=== PATIENT | male | born 1955 | race Caucasian/White ===

== ENCOUNTER 2018-11-23 14:27 | Outpatient (CLI) | payer MEDICAID | END 2018-11-23 23:59 | disposition home or self-care (01) | LOC: CARD DIAG 14:27 | PROVIDERS: ATTEND Physician Assistant | DX: I08.8 Other rheumatic multiple valve diseases (principal); I10 Essential (primary) hypertension | CPT/HCPCS: 93306 ==

== ENCOUNTER 2021-10-19 11:11 | Day surgery (SDC) | payer MEDICAID ==
[2021-10-15 12:08] LABS: BASOPHILS # (AUTO) 0.1 X10'3 (0-0.2); BASOPHILS % (AUTO) 0.9 % (0-1); EOSINOPHILS # (AUTO) 0.1 X10'3 (0-0.9); EOSINOPHILS % (AUTO) 1.3 % (0-6); HEMATOCRIT 48.3 % (42.0-52.0); HEMOGLOBIN 16.5 g/dl (14.0-17.9); LYMPHOCYTES # (AUTO) 1.5 X10'3 (1.1-4.8); LYMPHOCYTES % (AUTO) 17.6 % (21-51); MEAN CORPUSCULAR HEMOGLOBIN 31.3 PG (27.0-31.0); MEAN CORPUSCULAR HGB CONC 34.1 g/dL (33.0-36.5); MEAN CORPUSCULAR VOLUME 91.7 FL (78-98); MEAN PLATELET VOLUME 7.9 FL (7.4-10.4); MONOCYTES # (AUTO) 0.8 X10'3 (0-0.9); MONOCYTES % (AUTO) 9.5 % (2-12); NEUTROPHILS % (AUTO) 70.7 % (42-75); PLATELET COUNT 234 X10'3 (140-440); RED BLOOD COUNT 5.27 X10'6 (4.70-6.10); RED CELL DISTRIBUTION WIDTH 15.8 % (11.5-14.5); WHITE BLOOD COUNT 8.4 X10'3 (4.5-11.0)
[2021-10-15 12:17] LABS: APTT 32 SECONDS (22-32)
[2021-10-15 12:21] LABS: ALANINE AMINOTRANSFERASE 31 U/L (12-78); ALBUMIN 3.9 G/DL (3.4-5.0); ALBUMIN/GLOBULIN RATIO 0.9 (1.1-1.5); ANION GAP 10 (8-16); ASPARTATE AMINO TRANSFERASE 52 U/L (10-37); BLOOD UREA NITROGEN 15 MG/DL (7-18); BUN/CREATININE RATIO 13.5 (5.4-32.0); CHLORIDE 103 MMOL/L (99-107); CREATININE 1.11 MG/DL (0.60-1.10); GLUCOSE 95 MG/DL (70-104); POTASSIUM 3.7 MMOL/L (3.5-5.1); SODIUM 140 MMOL/L (135-145); TOTAL CARBON DIOXIDE 26.7 MMOL/L (24-32); TOTAL PROTEIN 8.1 G/DL (6.4-8.2); eGFR 66 ML/MIN
[2021-10-15 12:22] LABS: ALKALINE PHOSPHATASE 97 IU/L (46-116); CHOL/HDL RATIO 3.5 (0.00-4.99); CHOLESTEROL 273 MG/DL (0-200); HDL CHOLESTEROL 79 MG/DL (35-60); LDL CHOLESTEROL 174 MG/DL (50-100); TRIGLYCERIDES 107 MG/DL (20-135)
[~2021-10-19] VITALS: Ht 165.1 cm; Wt 102.0 kg
[2021-10-19] VITALS (12 sets, daily range): BP systolic 129–170; BP diastolic 80–155
[2021-10-19] MEDS ORDERED: LISI30TA4 PO (11:33)
[2021-10-19] MEDS ORDERED: AMIO200T61 PO (11:33)
[2021-10-19] MEDS ORDERED: ATOR20TA66 PO (11:33)
[2021-10-19] MEDS ORDERED: METO200T49 PO (11:33)
[2021-10-19] MEDS ORDERED: APIX5TAB3 PO (11:33)
[2021-10-19] MEDS ORDERED: normal saline 1000ml 1,000 ML IV SCH (12:40)
[2021-10-19] MEDS ORDERED: fentaNYL/PF 50MCG/1 ML 2ML syringe IV ONE (12:40)
[2021-10-19] MEDS ORDERED: MIDAZolam 1mg/ml 10ml vial IV ONE (12:40)
--- NOTE | 2021-10-19 13:17 | NUR ---
RT for standby for cardioversion, SUNDAY indicated pt placed on 5lpm NC pre procedure titrate to 2lpm NC post procedure, BS clear t/out, PT awake alert responding appropriately, RN to resume management of pt. Addendum: 10/19/21 at 1319 by Betzy Dixon RT Amended: Links added.
== END 2021-10-19 14:30 | disposition home or self-care (01) ==
LOC: SSTAY O 11:11
PROVIDERS: ATTEND Internal Medicine Interventional Cardiology
DX: I48.0 Paroxysmal atrial fibrillation (principal); I11.0 Hypertensive heart disease with heart failure; I50.22 Chronic systolic (congestive) heart failure; I35.0 Nonrheumatic aortic (valve) stenosis; Z86.73 Personal history of transient ischemic attack (TIA), and cerebral infarction without residual deficits; Z79.01 Long term (current) use of anticoagulants; Z79.899 Other long term (current) drug therapy
CPT/HCPCS: 36415; 80053; 80061; 85025; 85610; 85730; 92960; 93005; 94760; 94799; J2250; J3010; J7030; A4620

== ENCOUNTER 2022-05-15 13:15 | Emergency (ER) | payer MEDICARE, MEDICAID ==
[~2022-05-15] VITALS: Ht 162.6 cm; Wt 115.0 kg
[~2022-05-15 13:15] MED LIST: AMIO200T61 PO; APIX5TAB3 PO; ATOR20TA66 PO; LISI30TA4 PO; METO200T49 PO
[2022-05-15] MEDS ORDERED: morphine 4 MG/ML inj SYRINge IV ONE (13:45)
[2022-05-15] MEDS ORDERED: metoprolol tartrate 1mg/ml inj IV ONE (13:45)
[2022-05-15] MEDS ORDERED: pantoprazole 40 MG vial IV ONE (13:45)
[2022-05-15] MEDS ORDERED: LORazepam 2 mg/ml vial IV ONE (13:45)
[2022-05-15] MEDS ORDERED: pantoprazole 40MG/NS 100ML BAG 100 ML IV ONE (14:00)
[2022-05-15 14:09] LABS: CLARITY,URINE CLEAR (Clear); COLOR,URINE STRAW (Yellow); GLUCOSE, URINE NEGATIVE (Neg); KETONES,URINE NEGATIVE (Neg); LEUKOCYTE ESTERASE ,URINE NEGATIVE (Neg); NITRITES, URINE NEGATIVE (Neg); OCCULT BLOOD,URINE NEGATIVE (Neg); PROTEIN,URINE NEGATIVE (Neg); UROBILINOGEN,URINE 0.2 E.U/dL (0.2-1.0)
[2022-05-15 14:09] LABS: BASOPHILS # (AUTO) 0.1 X10'3 (0-0.2); BASOPHILS % (AUTO) 1.2 % (0-1); EOSINOPHILS # (AUTO) 0.1 X10'3 (0-0.9); EOSINOPHILS % (AUTO) 0.6 % (0-6); HEMATOCRIT 42.1 % (42.0-52.0); HEMOGLOBIN 14.6 g/dl (14.0-17.9); LYMPHOCYTES # (AUTO) 1.2 X10'3 (1.1-4.8); LYMPHOCYTES % (AUTO) 14.2 % (21-51); MEAN CORPUSCULAR HEMOGLOBIN 34.8 PG (27.0-31.0); MEAN CORPUSCULAR HGB CONC 34.7 g/dL (33.0-36.5); MEAN CORPUSCULAR VOLUME 100.3 FL (78-98); MONOCYTES # (AUTO) 0.6 X10'3 (0-0.9); MONOCYTES % (AUTO) 7.8 % (2-12); NEUTROPHILS # (AUTO) 6.3 X10'3 (1.8-7.7); NEUTROPHILS % (AUTO) 76.2 % (42-75); PLATELET COUNT 275 X10'3 (140-440); RED CELL DISTRIBUTION WIDTH 13.9 % (11.5-14.5); WHITE BLOOD COUNT 8.3 X10'3 (4.5-11.0)
[2022-05-15 14:14] LABS: UA COLLECTION TYPE VOIDED
[2022-05-15 14:28] LABS: ALANINE AMINOTRANSFERASE 67 U/L (12-78); ALBUMIN 3.7 G/DL (3.4-5.0); ALBUMIN/GLOBULIN RATIO 0.8 (1.1-1.5); ALKALINE PHOSPHATASE 91 IU/L (46-116); ANION GAP 11 (8-16); ASPARTATE AMINO TRANSFERASE 70 U/L (10-37); BILIRUBIN,TOTAL 0.6 MG/DL (0.1-1.0); BLOOD UREA NITROGEN 22 MG/DL (7-18); BUN/CREATININE RATIO 14.8 (5.4-32.0); CHLORIDE 103 MMOL/L (99-107); CREATININE 1.49 MG/DL (0.60-1.10); ETHANOL < 0.010 GM/DL (0.0-0.010); GLUCOSE 109 MG/DL (70-104); LIPASE 224 U/L (73-393); POTASSIUM 3.7 MMOL/L (3.5-5.1); SODIUM 138 MMOL/L (135-145); TOTAL CARBON DIOXIDE 24.1 MMOL/L (24-32); TOTAL PROTEIN 8.1 G/DL (6.4-8.2); eGFR 47 ML/MIN
[2022-05-15] MEDS ORDERED: FURO-149 PO (14:31)
[2022-05-15] MEDS ORDERED: HYDROcodone/acetaminophen 10/325mg tab PO ONE (15:40)
[2022-05-15] MEDS ORDERED: HYDR-3972 PO (15:43)
[2022-05-15 15:59] VITALS: BP 139/95
== END 2022-05-15 16:08 | disposition home or self-care (01) ==
LOC: ER 13:15
DX: I48.91 Unspecified atrial fibrillation (principal); R10.9 Unspecified abdominal pain; I10 Essential (primary) hypertension; Z79.899 Other long term (current) drug therapy; Z79.1 Long term (current) use of non-steroidal anti-inflammatories (NSAID)
CPT/HCPCS: 36415; 71045; 74176; 80053; 80320; 81003; 83690; 85025; 93005; 96365; 96375; 99285; C9113; J3490

== ENCOUNTER 2022-06-18 21:23 | Emergency (ER) | payer MEDICARE, MEDICAID ==
[~2022-06-18] VITALS: Ht 167.6 cm; Wt 104.5 kg
[~2022-06-18 21:23] MED LIST changes: +FURO-149 PO; -METO200T49 PO
[2022-06-18] MEDS ORDERED: diltiazem 30mg tablet PO ONE (22:40)
[2022-06-19 02:04] VITALS: BP 89/46
[2022-06-19] MEDS ORDERED: HYDR-3965 PO (14:50)
== END 2022-06-19 03:56 | disposition home or self-care (01) ==
LOC: ER 21:23
DX: F10.920 Alcohol use, unspecified with intoxication, uncomplicated (principal); I11.9 Hypertensive heart disease without heart failure; Z79.899 Other long term (current) drug therapy; Y90.9 Presence of alcohol in blood, level not specified; S09.90XA Unspecified injury of head, initial encounter
CPT/HCPCS: 70450; 99285

== ENCOUNTER 2022-06-19 13:37 | Emergency (ER) | payer MEDICARE, MEDICAID ==
[~2022-06-19] VITALS: Ht 167.6 cm; Wt 104.5 kg
[2022-06-19 14:03] VITALS: BP 122/69
[2022-06-19] MEDS ORDERED: HYDR-3965 PO (14:50)
== END 2022-06-19 15:22 | disposition home or self-care (01) ==
LOC: ER 13:37
DX: R07.81 Pleurodynia (principal); F10.920 Alcohol use, unspecified with intoxication, uncomplicated; I11.9 Hypertensive heart disease without heart failure; Z79.899 Other long term (current) drug therapy; Z79.1 Long term (current) use of non-steroidal anti-inflammatories (NSAID); Z79.2 Long term (current) use of antibiotics; W19.XXXA Unspecified fall, initial encounter; Y93.89 Activity, other specified; Y92.89 Other specified places as the place of occurrence of the external cause; Y99.8 Other external cause status
CPT/HCPCS: 71100; 99284

== ENCOUNTER 2022-10-25 20:47 | Emergency (ER) | payer OTHER, MEDICAID ==
[~2022-10-25] VITALS: Ht 167.6 cm; Wt 100.0 kg
[~2022-10-25 20:47] MED LIST changes: +AMI200T PO; -AMIO200T61 PO
[2022-10-25 21:16] VITALS: BP 94/64
[2022-10-25 21:33] LABS: ALANINE AMINOTRANSFERASE 68 U/L (12-78); ALBUMIN 3.6 G/DL (3.4-5.0); ALBUMIN/GLOBULIN RATIO 0.9 (1.1-1.5); ALKALINE PHOSPHATASE 118 IU/L (46-116); ANION GAP 13 (8-16); ASPARTATE AMINO TRANSFERASE 108 U/L (10-37); BILIRUBIN,TOTAL 0.7 MG/DL (0.1-1.0); BLOOD UREA NITROGEN 24 MG/DL (7-18); BUN/CREATININE RATIO 11.2 (10.0-20.0); CALCIUM 8.7 MG/DL (8.5-10.1); CHLORIDE 103 MMOL/L (99-107); CREATININE 2.14 MG/DL (0.60-1.10); GLUCOSE 99 MG/DL (70-104); POTASSIUM 3.9 MMOL/L (3.5-5.1); SODIUM 139 MMOL/L (135-145); TOTAL CARBON DIOXIDE 22.9 MMOL/L (24-32); TOTAL PROTEIN 7.7 G/DL (6.4-8.2); eGFR 31 ML/MIN
[2022-10-25 21:50] LABS: BASOPHILS # (AUTO) 0.1 X10'3 (0-0.2); BASOPHILS % (AUTO) 1.5 % (0-1); EOSINOPHILS # (AUTO) 0.1 X10'3 (0-0.9); EOSINOPHILS % (AUTO) 1.7 % (0-6); HEMATOCRIT 40.4 % (42.0-52.0); HEMOGLOBIN 13.7 g/dl (14.0-17.9); LYMPHOCYTES # (AUTO) 1.9 X10'3 (1.1-4.8); LYMPHOCYTES % (AUTO) 29.7 % (21-51); MEAN CORPUSCULAR HEMOGLOBIN 34.2 PG (27.0-31.0); MEAN CORPUSCULAR VOLUME 100.8 FL (78-98); MONOCYTES # (AUTO) 0.7 X10'3 (0-0.9); MONOCYTES % (AUTO) 11.4 % (2-12); NEUTROPHILS # (AUTO) 3.6 X10'3 (1.8-7.7); NEUTROPHILS % (AUTO) 55.7 % (42-75); PLATELET COUNT 173 X10'3 (140-440); RED BLOOD COUNT 4.01 X10'6 (4.70-6.10); RED CELL DISTRIBUTION WIDTH 15.4 % (11.5-14.5); WHITE BLOOD COUNT 6.4 X10'3 (4.5-11.0)
[2022-10-25] MEDS ORDERED: normal saline 1000ML IV soln IVB ONE (22:15)
== END 2022-10-25 23:34 | disposition home or self-care (01) ==
LOC: ER 20:47
DX: I48.91 Unspecified atrial fibrillation (principal); F10.129 Alcohol abuse with intoxication, unspecified; I10 Essential (primary) hypertension; Y90.9 Presence of alcohol in blood, level not specified
CPT/HCPCS: 36415; 71045; 80053; 83880; 84484; 85025; 93005; 99285; J7030; J7040

== ENCOUNTER 2023-12-04 21:40 | Inpatient (IN) | payer MEDICAID, OTHER ==
[~2023-12-04] VITALS: Ht 167.6 cm; Wt 108.6 kg
[2023-12-04 22:19] LABS: ALANINE AMINOTRANSFERASE 51 U/L (12-78); ALBUMIN 3.1 G/DL (3.4-5.0); ALBUMIN/GLOBULIN RATIO 0.7 (1.1-1.5); ALKALINE PHOSPHATASE 94 IU/L (46-116); ANION GAP 11 (8-16); ASPARTATE AMINO TRANSFERASE 37 U/L (10-37); BILIRUBIN,TOTAL 0.9 MG/DL (0.1-1.0); BLOOD UREA NITROGEN 10 MG/DL (7-18); BUN/CREATININE RATIO 8.1 (10.0-20.0); CALCIUM 8.6 MG/DL (8.5-10.1); CHLORIDE 107 MMOL/L (99-107); CREATININE 1.24 MG/DL (0.60-1.10); GLUCOSE 102 MG/DL (70-104); POTASSIUM 3.6 MMOL/L (3.5-5.1); SODIUM 139 MMOL/L (135-145); TOTAL CARBON DIOXIDE 20.9 MMOL/L (24-32); TOTAL PROTEIN 7.3 G/DL (6.4-8.2); eCRCL 52 ML/MIN; eGFR 58 ML/MIN
[2023-12-04 22:23] LABS: ETHANOL 17 MG/DL (<10)
[2023-12-04 22:35] LABS: BASOPHILS # (AUTO) 0.1 X10'3 (0-0.2); BASOPHILS % (AUTO) 0.8 % (0-1); EOSINOPHILS # (AUTO) 0.1 X10'3 (0-0.9); EOSINOPHILS % (AUTO) 0.9 % (0-6); HEMATOCRIT 42.3 % (42.0-52.0); HEMOGLOBIN 14.4 g/dl (14.0-17.9); LYMPHOCYTES # (AUTO) 1.7 X10'3 (1.1-4.8); LYMPHOCYTES % (AUTO) 15.7 % (21-51); MEAN CORPUSCULAR HEMOGLOBIN 33.5 PG (27.0-31.0); MEAN CORPUSCULAR VOLUME 98.6 FL (78-98); MEAN PLATELET VOLUME 7.8 FL (7.4-10.4); MONOCYTES # (AUTO) 0.9 X10'3 (0-0.9); MONOCYTES % (AUTO) 8.3 % (2-12); NEUTROPHILS # (AUTO) 7.8 X10'3 (1.8-7.7); NEUTROPHILS % (AUTO) 74.3 % (42-75); PLATELET COUNT 247 X10'3 (140-440); RED BLOOD COUNT 4.29 X10'6 (4.70-6.10); RED CELL DISTRIBUTION WIDTH 15.3 % (11.5-14.5); WHITE BLOOD COUNT 10.6 X10'3 (4.5-11.0)
[2023-12-04 22:52] LABS: APTT 23 SECONDS (22-32); PROTHROMBIN TIME 10.8 SECONDS (9.0-12.0)
[2023-12-04] MEDS: diltiazem 5mg/ml 5ml inj. IV ONE (23:03)
[2023-12-05 00:12] LABS: URINE AMPHETAMINE SCREEN NEGATIVE (Neg); URINE BARBITUATE SCREEN NEGATIVE (Neg); URINE BENZODIAZEPINES SCREEN NEGATIVE (Neg); URINE CANNABINOID SCREEN NEGATIVE (Neg); URINE COCAINE SCREEN NEGATIVE (Neg); URINE METHADONE SCREEN NEGATIVE (Neg); URINE OPIATE SCREEN NEGATIVE (Neg); URINE PHENCYCLIDINE SCREEN NEGATIVE (Neg)
[2023-12-05] MEDS: diltiazem-NS 100mg/100ml 100 ML IV SCH (00:21)
[2023-12-05] MEDS: furosemide 40mg/4ml inj IV ONE (00:21)
[2023-12-05 01:49] LABS: BILIRUBIN,URINE NEGATIVE (Neg); CLARITY,URINE CLEAR (Clear); COLOR,URINE YELLOW (Yellow); GLUCOSE, URINE NEGATIVE (Neg); KETONES,URINE NEGATIVE (Neg); LEUKOCYTE ESTERASE ,URINE NEGATIVE (Neg); NITRITES, URINE NEGATIVE (Neg); OCCULT BLOOD,URINE NEGATIVE (Neg); PROTEIN,URINE NEGATIVE (Neg)
[2023-12-05 02:00] VITALS: BP 144/76; PULSE 120; RESP 20; TEMP 98; O2SAT 96
[2023-12-05] MEDS ORDERED: clopidogrel 75mg tablet PO SCH (02:05)
[2023-12-05 02:16] LABS: UA COLLECTION TYPE CLN CATCH MIDSTREAM
[2023-12-05] MEDS ORDERED: clopidogrel 300mg tablet PO ONE (03:55)
[2023-12-05] MEDS: furosemide 20 MG/2 ML vial IV ONE (04:04)
[2023-12-05] MEDS: aspirin 325mg tablet PO ONE (04:04)
[2023-12-05] MEDS: clopidogrel 75mg tablet PO ONE (04:05)
[2023-12-05] MEDS: diltiazem 30mg tablet PO SCH (04:05)
[2023-12-05 06:54] LABS: THYROID STIMULATING HORMONE 10.33 ulU/ml (0.34-4.50)
[2023-12-05 08:00] VITALS: BP 132/89; PULSE 77; RESP 16; TEMP 97.4; O2SAT 97
[2023-12-05] MEDS ORDERED: atorvastatin 20mg tablet PO SCH (08:00)
[2023-12-05] MEDS: lisinopril 10 MG tablet PO SCH (08:00)
[2023-12-05] MEDS ORDERED: apixaban 5mg tablet PO SCH (08:00)
[2023-12-05] MEDS: furosemide 40mg/4ml inj IV SCH (08:58)
[2023-12-05] MEDS: aspirin 81mg, enteric-coated 1 TAB TABLET.DR PO SCH (08:59)
[2023-12-05 10:15] LABS: BASOPHILS # (AUTO) 0.1 X10'3 (0-0.2); EOSINOPHILS # (AUTO) 0.1 X10'3 (0-0.9); EOSINOPHILS % (AUTO) 1.3 % (0-6); HEMOGLOBIN 14.9 g/dl (14.0-17.9); LYMPHOCYTES # (AUTO) 1.6 X10'3 (1.1-4.8); LYMPHOCYTES % (AUTO) 14.9 % (21-51); MEAN CORPUSCULAR HEMOGLOBIN 33.7 PG (27.0-31.0); MEAN CORPUSCULAR HGB CONC 33.9 g/dL (33.0-36.5); MEAN CORPUSCULAR VOLUME 99.4 FL (78-98); MEAN PLATELET VOLUME 8.7 FL (7.4-10.4); MONOCYTES % (AUTO) 9.2 % (2-12); NEUTROPHILS # (AUTO) 7.6 X10'3 (1.8-7.7); NEUTROPHILS % (AUTO) 73.6 % (42-75); PLATELET COUNT 258 X10'3 (140-440); RED BLOOD COUNT 4.43 X10'6 (4.70-6.10); RED CELL DISTRIBUTION WIDTH 15.4 % (11.5-14.5); WHITE BLOOD COUNT 10.4 X10'3 (4.5-11.0)
[2023-12-05 10:20] LABS: ALANINE AMINOTRANSFERASE 48 U/L (12-78); ALBUMIN 3.4 G/DL (3.4-5.0); ALBUMIN/GLOBULIN RATIO 0.8 (1.1-1.5); ALKALINE PHOSPHATASE 98 IU/L (46-116); ANION GAP 18 (8-16); ASPARTATE AMINO TRANSFERASE 38 U/L (10-37); BILIRUBIN,TOTAL 1.5 MG/DL (0.1-1.0); BLOOD UREA NITROGEN 10 MG/DL (7-18); BUN/CREATININE RATIO 7.6 (10.0-20.0); CALCIUM 8.8 MG/DL (8.5-10.1); CHLORIDE 103 MMOL/L (99-107); CREATININE 1.31 MG/DL (0.60-1.10); GLUCOSE 109 MG/DL (70-104); POTASSIUM 3.5 MMOL/L (3.5-5.1); SODIUM 140 MMOL/L (135-145); TOTAL CARBON DIOXIDE 18.9 MMOL/L (24-32); TOTAL PROTEIN 7.9 G/DL (6.4-8.2); eCRCL 49 ML/MIN; eGFR 55 ML/MIN
[2023-12-05 18:00] VITALS: BP 143/68; PULSE 106; RESP 26; TEMP 97.2; O2SAT 96
[2023-12-05 22:00] VITALS: BP 123/78; PULSE 115; RESP 20; TEMP 98.9; O2SAT 96
[2023-12-06] VITALS (7 sets, daily range): BP systolic 103–129; BP diastolic 76–87; PULSE 58–114; RESP 14–25; TEMP 97.2–99; O2SAT 93–96
[2023-12-06 06:53] LABS: CHOL/HDL RATIO 6.3 (0.00-4.99); CHOLESTEROL 282 MG/DL (0-200); HDL CHOLESTEROL 45 MG/DL (35-60); LDL CHOLESTEROL 199 MG/DL (50-100); TRIGLYCERIDES 102 MG/DL (20-135)
[2023-12-06] MEDS: atorvastatin 20mg tablet PO SCH (07:22)
[2023-12-06] MEDS: levoTHYROXINE 25mcg tablet PO SCH (07:23)
[2023-12-06] MEDS: diltiazem CD 120mg capsule (once-daily) PO SCH (07:24)
[2023-12-06] MEDS ORDERED: APIX5TAB3 PO (10:32)
[2023-12-06] MEDS ORDERED: clopidogrel 75mg tablet PO SCH (12:00)
[2023-12-06] MEDS: apixaban 5mg tablet PO SCH (20:09)
[2023-12-07] VITALS (10 sets, daily range): BP systolic 98–132; BP diastolic 63–91; PULSE 87–110; RESP 14–25; TEMP 97–98.3; O2SAT 93–100
[2023-12-07] MEDS: clopidogrel 75mg tablet PO SCH (07:18)
[2023-12-07] MEDS: lisinopril 5mg tablet PO SCH (07:18)
[2023-12-07] MEDS: metoprolol succinate 25mg (24-HOUR) SR. Tablet PO SCH (07:19)
[2023-12-07] MEDS: furosemide 40mg tablet PO SCH (07:19)
[2023-12-07] MEDS: diltiazem CD 180mg cap (once-daily) PO SCH (07:19)
[2023-12-07 09:14] LABS: ALBUMIN 3.3 G/DL (3.4-5.0); ANION GAP 11 (8-16); BLOOD UREA NITROGEN 16 MG/DL (7-18); BUN/CREATININE RATIO 12.3 (10.0-20.0); CALCIUM 9.4 MG/DL (8.5-10.1); CHLORIDE 100 MMOL/L (99-107); GLUCOSE 110 MG/DL (70-104); POTASSIUM 3.5 MMOL/L (3.5-5.1); SODIUM 135 MMOL/L (135-145); TOTAL CARBON DIOXIDE 24.2 MMOL/L (24-32); eCRCL 50 ML/MIN; eGFR 55 ML/MIN
[2023-12-08] VITALS (8 sets, daily range): BP systolic 105–128; BP diastolic 68–83; PULSE 66–108; RESP 16–24; TEMP 97–97.9; O2SAT 94–100
[2023-12-08] MEDS: metoprolol succinate 25mg (24-HOUR) SR. Tablet PO SCH (08:59)
[2023-12-08] MEDS: amox tr/potassium clavulanate 875/125mg TAB PO SCH (11:38)
[2023-12-08] MEDS: predniSONE 20 mg tablet PO SCH (11:38)
[2023-12-09 02:00] VITALS: BP 117/78; PULSE 88; RESP 19; TEMP 97; O2SAT 96
[2023-12-09] MEDS ORDERED: haloperidol lactate 5mg/ml inj IM PRN (02:15)
[2023-12-09] MEDS ORDERED: LORazepam 2 mg/ml vial IV PRN ×3 (02:15)
[2023-12-09] MEDS ORDERED: dextrose 50%-water 50ml dispensing syringe IV PRN (02:15)
[2023-12-09] MEDS ORDERED: LORazepam 1 MG tablet PO PRN ×2 (02:15)
[2023-12-09] MEDS ORDERED: haloperidol 5mg tablet PO PRN (02:15)
[2023-12-09 06:00] VITALS: BP 102/75; PULSE 70; RESP 18; TEMP 97; O2SAT 96
[2023-12-09] MEDS: folic acid 1mg/0.2ml inj IV SCH (08:00)
[2023-12-09] MEDS: thiamine 100mg/ml 2ml inj. IV SCH (08:00)
[2023-12-09] MEDS: folic acid 1mg tablet PO SCH (08:33)
[2023-12-09] MEDS: thiamine 100mg tablet PO SCH (08:33)
[2023-12-09 08:59] LABS: BASOPHILS # (AUTO) 0.1 X10'3 (0-0.2); BASOPHILS % (AUTO) 0.3 % (0-1); EOSINOPHILS % (AUTO) 0.2 % (0-6); HEMATOCRIT 49.1 % (42.0-52.0); HEMOGLOBIN 16.6 g/dl (14.0-17.9); LYMPHOCYTES # (AUTO) 1.8 X10'3 (1.1-4.8); LYMPHOCYTES % (AUTO) 9.7 % (21-51); MEAN CORPUSCULAR HEMOGLOBIN 33.5 PG (27.0-31.0); MEAN CORPUSCULAR HGB CONC 33.8 g/dL (33.0-36.5); MEAN CORPUSCULAR VOLUME 99.4 FL (78-98); MEAN PLATELET VOLUME 8.2 FL (7.4-10.4); MONOCYTES # (AUTO) 1.3 X10'3 (0-0.9); MONOCYTES % (AUTO) 7.2 % (2-12); NEUTROPHILS # (AUTO) 15.1 X10'3 (1.8-7.7); NEUTROPHILS % (AUTO) 82.6 % (42-75); PLATELET COUNT 306 X10'3 (140-440); RED BLOOD COUNT 4.95 X10'6 (4.70-6.10); RED CELL DISTRIBUTION WIDTH 15.1 % (11.5-14.5); WHITE BLOOD COUNT 18.3 X10'3 (4.5-11.0)
[2023-12-09 09:09] LABS: ALBUMIN 3.4 G/DL (3.4-5.0); ANION GAP 11 (8-16); BLOOD UREA NITROGEN 29 MG/DL (7-18); BUN/CREATININE RATIO 19.3 (10.0-20.0); CALCIUM 10.1 MG/DL (8.5-10.1); CHLORIDE 100 MMOL/L (99-107); GLUCOSE 98 MG/DL (70-104); POTASSIUM 3.7 MMOL/L (3.5-5.1); SODIUM 139 MMOL/L (135-145); TOTAL CARBON DIOXIDE 28.5 MMOL/L (24-32); eCRCL 43 ML/MIN; eGFR 47 ML/MIN
[2023-12-09 11:00] VITALS: BP 107/74; PULSE 96; RESP 14; TEMP 97.9; O2SAT 98
[2023-12-09] MEDS: prednisone 10mg tablet PO ONE (12:10)
[2023-12-09 18:00] VITALS: BP 110/64; PULSE 96; RESP 22; TEMP 97.8; O2SAT 98
[2023-12-09 22:00] VITALS: BP 117/64; PULSE 66; RESP 12; TEMP 97.8; O2SAT 98
[2023-12-10 06:00] VITALS: BP 136/88; PULSE 55; RESP 17; TEMP 97.1; O2SAT 96
[2023-12-10 08:00] VITALS: RESP 19; O2SAT 96
[2023-12-10 08:59] LABS: BASOPHILS % (AUTO) 0.1 % (0-1); EOSINOPHILS % (AUTO) 0 % (0-6); HEMATOCRIT 46.6 % (42.0-52.0); HEMOGLOBIN 15.3 g/dl (14.0-17.9); LYMPHOCYTES # (AUTO) 1.5 X10'3 (1.1-4.8); MEAN CORPUSCULAR HEMOGLOBIN 32.7 PG (27.0-31.0); MEAN CORPUSCULAR HGB CONC 32.8 g/dL (33.0-36.5); MEAN CORPUSCULAR VOLUME 99.8 FL (78-98); MEAN PLATELET VOLUME 8.9 FL (7.4-10.4); MONOCYTES % (AUTO) 5.3 % (2-12); NEUTROPHILS % (AUTO) 86.6 % (42-75); PLATELET COUNT 293 X10'3 (140-440); RED BLOOD COUNT 4.68 X10'6 (4.70-6.10); RED CELL DISTRIBUTION WIDTH 15.2 % (11.5-14.5); WHITE BLOOD COUNT 18.4 X10'3 (4.5-11.0)
[2023-12-10 09:03] LABS: ANION GAP 9 (8-16); BLOOD UREA NITROGEN 32 MG/DL (7-18); C-REACTIVE PROTEIN 2.99 MG/DL (0.0-0.5); CALCIUM 9.3 MG/DL (8.5-10.1); CHLORIDE 102 MMOL/L (99-107); CREATININE 1.39 MG/DL (0.60-1.10); GLUCOSE 117 MG/DL (70-104); SODIUM 138 MMOL/L (135-145); TOTAL CARBON DIOXIDE 26.9 MMOL/L (24-32); URIC ACID 9.7 MG/DL (3.5-7.2); eCRCL 47 ML/MIN; eGFR 51 ML/MIN
[2023-12-10 09:04] LABS: POTASSIUM 3.9 MMOL/L (3.5-5.1)
[2023-12-10 11:00] VITALS: BP 120/76; PULSE 84; RESP 22; TEMP 98.9; O2SAT 98
[2023-12-10] MEDS ORDERED: METO-395 PO (13:09)
[2023-12-10] MEDS ORDERED: AMOX-580 PO (13:09)
[2023-12-10] MEDS ORDERED: LEVO25TA7 PO (13:09)
[2023-12-10] MEDS ORDERED: ATOR20TA66 PO (13:09)
[2023-12-10] MEDS ORDERED: PRED20TA PO (13:09)
[2023-12-10] MEDS ORDERED: LISI5TAB22 PO (13:09)
[2023-12-10 15:00] VITALS: BP 91/52; PULSE 87; RESP 19; TEMP 97.5; O2SAT 99
[2023-12-10 18:00] VITALS: BP 91/51; PULSE 91; RESP 18; TEMP 98.2; O2SAT 98
[2023-12-10 20:00] VITALS: RESP 18; O2SAT 98
[2023-12-11 07:23] VITALS: BP 127/91; PULSE 102; RESP 21; TEMP 97.5; O2SAT 97
[2023-12-11 07:42] VITALS: BP_SYST 127; PULSE 102
[2023-12-11 08:00] VITALS: RESP 21; O2SAT 96
== END 2023-12-11 10:40 | disposition home or self-care (01) | DRG 64 ==
LOC: ER 21:41 → UNDOADMIN 12-05 00:52 → ED HOLD 12-05 00:52 → PCU 3S 12-05 01:43
PROVIDERS: ADMIT Internal Medicine Critical Care Medicine; ATTEND Internal Medicine
PROC: B3251ZZ Computerized Tomography (CT Scan) of Bilateral Common Carotid Arteries using Low Osmolar Contrast (ICD-10-PCS; principal; 2023-12-04)
PROC: B32G1ZZ Computerized Tomography (CT Scan) of Bilateral Vertebral Arteries using Low Osmolar Contrast (ICD-10-PCS; 2023-12-04)
PROC: B32R1ZZ Computerized Tomography (CT Scan) of Intracranial Arteries using Low Osmolar Contrast (ICD-10-PCS; 2023-12-04)
PROC: B3281ZZ Computerized Tomography (CT Scan) of Bilateral Internal Carotid Arteries using Low Osmolar Contrast (ICD-10-PCS; 2023-12-04)
DX: I63.9 Cerebral infarction, unspecified (principal); I50.43 Acute on chronic combined systolic (congestive) and diastolic (congestive) heart failure; N17.0 Acute kidney failure with tubular necrosis; G81.91 Hemiplegia, unspecified affecting right dominant side; K92.0 Hematemesis; I11.0 Hypertensive heart disease with heart failure; I48.91 Unspecified atrial fibrillation; I27.20 Pulmonary hypertension, unspecified; E78.5 Hyperlipidemia, unspecified; F17.200 Nicotine dependence, unspecified, uncomplicated; I65.23 Occlusion and stenosis of bilateral carotid arteries; F10.929 Alcohol use, unspecified with intoxication, unspecified; Y90.9 Presence of alcohol in blood, level not specified; M10.9 Gout, unspecified; I70.1 Atherosclerosis of renal artery; L03.031 Cellulitis of right toe; I08.1 Rheumatic disorders of both mitral and tricuspid valves; Z91.148 Patient's other noncompliance with medication regimen for other reason; Z79.01 Long term (current) use of anticoagulants; Z91.199 Patient's noncompliance with other medical treatment and regimen due to unspecified reason
CPT/HCPCS: 36415; 70450; 70496; 70498; 70551; 71045; 80048; 80053; 80061; 80305; 80320; 81003; 82948; 83036; 83605; 83880; 84443; 84484; 84550; 85025; 85610; 85651; 85730; 86140; 87040; 87081; 92507; 92508; 92616; 93005; 93306; 93880; 93971; 96365; 96375; 96376; 97110; 97116; 97161; 97530; 97535; 99291; G0378; J1940; J3411; J3490; J7030; J7512

== ENCOUNTER 2024-03-25 08:35 | Outpatient (CLI) | payer OTHER ==
[~2024-03-25 08:35] MED LIST changes: -AMI200T PO; +AMOX-580 PO; +LEVO25TA7 PO; -LISI30TA4 PO; +LISI5TAB22 PO; +METO-395 PO; +PRED20TA PO
[2024-03-25 09:13] LABS: BASOPHILS # (AUTO) 0.1 X10'3 (0-0.2); BASOPHILS % (AUTO) 1.2 % (0-1); EOSINOPHILS # (AUTO) 0.3 X10'3 (0-0.9); EOSINOPHILS % (AUTO) 4.3 % (0-6); LYMPHOCYTES # (AUTO) 1.6 X10'3 (1.1-4.8); LYMPHOCYTES % (AUTO) 20.5 % (21-51); MEAN CORPUSCULAR HEMOGLOBIN 31.9 PG (27.0-31.0); MEAN CORPUSCULAR HGB CONC 34.1 g/dL (33.0-36.5); MEAN CORPUSCULAR VOLUME 93.6 FL (78-98); MEAN PLATELET VOLUME 7.1 FL (7.4-10.4); MONOCYTES # (AUTO) 0.7 X10'3 (0-0.9); MONOCYTES % (AUTO) 8.4 % (2-12); NEUTROPHILS # (AUTO) 5.1 X10'3 (1.8-7.7); NEUTROPHILS % (AUTO) 65.6 % (42-75); PLATELET COUNT 291 X10'3 (140-440); RED BLOOD COUNT 4.69 X10'6 (4.70-6.10); RED CELL DISTRIBUTION WIDTH 15.7 % (11.5-14.5); WHITE BLOOD COUNT 7.8 X10'3 (4.5-11.0)
[2024-03-25 09:25] LABS: ALANINE AMINOTRANSFERASE 20 U/L (12-78); ALBUMIN 3.4 G/DL (3.4-5.0); ALBUMIN/GLOBULIN RATIO 0.8 (1.1-1.5); ALKALINE PHOSPHATASE 95 IU/L (46-116); ANION GAP 13 (8-16); ASPARTATE AMINO TRANSFERASE 26 U/L (10-37); BILIRUBIN,TOTAL 0.5 MG/DL (0.1-1.0); CALCIUM 8.8 MG/DL (8.5-10.1); CHLORIDE 107 MMOL/L (99-107); CREATININE 1.31 MG/DL (0.60-1.10); GLUCOSE 112 MG/DL (70-104); POTASSIUM 3.8 MMOL/L (3.5-5.1); SODIUM 140 MMOL/L (135-145); TOTAL CARBON DIOXIDE 20.1 MMOL/L (24-32); TOTAL PROTEIN 7.5 G/DL (6.4-8.2); eGFR 54 ML/MIN
[2024-03-25] MEDS ORDERED: IODIXANOL 320 MG/ML INFUS..BTL 100ML IV ONE (09:27)
[2024-03-25 09:30] LABS: PROTHROMBIN TIME 10.5 SECONDS (9.0-12.0)
[2024-03-25 09:32] LABS: PRO BRAIN NATRIURETIC PEPTIDE 2358 PG/ML (0-125)
[2024-03-25 09:42] LABS: APTT 20 SECONDS (22-32); BLOOD UREA NITROGEN 18 MG/DL (7-18); BUN/CREATININE RATIO 13.7 (10.0-20.0)
[2024-03-25 10:25] VITALS: BP 133/96; PULSE 129
[2024-03-25 10:35] VITALS: BP 143/96; PULSE 115
[2024-03-25 10:45] VITALS: BP 132/87; PULSE 102
[2024-04-02] MEDS ORDERED: LISI10TA27 PO (14:52)
[2024-04-02] MEDS ORDERED: EMPA10TA PO (14:52)
[2024-04-02] MEDS ORDERED: SPIR25TA5 PO (14:52)
[2024-04-02] MEDS ORDERED: FURO20TA4 PO (14:52)
[2024-04-02] MEDS ORDERED: APIX5TAB3 PO (14:54)
[2024-04-02] MEDS ORDERED: CLOP75TA34 PO (14:54)
[2024-04-02] MEDS ORDERED: METO-411 PO (14:54)
[2024-04-02] MEDS ORDERED: ATOR20TA66 PO (14:54)
== END 2024-03-25 23:59 | disposition home or self-care (01) ==
LOC: RAD 08:35
PROVIDERS: ATTEND Internal Medicine Cardiovascular Disease
DX: Z01.818 Encounter for other preprocedural examination (principal); I35.0 Nonrheumatic aortic (valve) stenosis; K40.90 Unilateral inguinal hernia, without obstruction or gangrene, not specified as recurrent; R06.02 Shortness of breath; I65.29 Occlusion and stenosis of unspecified carotid artery; I51.7 Cardiomegaly; K44.9 Diaphragmatic hernia without obstruction or gangrene; M47.819 Spondylosis without myelopathy or radiculopathy, site unspecified
CPT/HCPCS: 36415; 71046; 71275; 74174; 75572; 80053; 83880; 85025; 85610; 85730; 93880; Q9967

== ENCOUNTER 2024-03-28 14:23 | Outpatient (CLI) | payer OTHER ==
[~2024-03-28] VITALS: Ht 167.6 cm; Wt 102.8 kg
[~2024-03-28 14:23] MED LIST changes: +atropine 0.1mg/ml 10ml syringe ONE; +metoprolol tartrate 1mg/ml inj IV ONE
[2024-03-28 14:47] VITALS: BP 128/83; PULSE 55; RESP 18; TEMP 95.9; O2SAT 99
[2024-04-02] MEDS ORDERED: SPIR25TA5 PO (14:52)
[2024-04-02] MEDS ORDERED: LISI10TA27 PO (14:52)
[2024-04-02] MEDS ORDERED: EMPA10TA PO (14:52)
[2024-04-02] MEDS ORDERED: FURO20TA4 PO (14:52)
[2024-04-02] MEDS ORDERED: ATOR20TA66 PO (14:54)
[2024-04-02] MEDS ORDERED: METO-411 PO (14:54)
[2024-04-02] MEDS ORDERED: APIX5TAB3 PO (14:54)
[2024-04-02] MEDS ORDERED: CLOP75TA34 PO (14:54)
== END 2024-03-28 23:59 | disposition home or self-care (01) ==
LOC: TAVR 14:23
PROVIDERS: ATTEND Internal Medicine Cardiovascular Disease
DX: I48.91 Unspecified atrial fibrillation (principal); I35.0 Nonrheumatic aortic (valve) stenosis; I11.9 Hypertensive heart disease without heart failure; I25.5 Ischemic cardiomyopathy; I42.0 Dilated cardiomyopathy; E78.5 Hyperlipidemia, unspecified; I25.10 Atherosclerotic heart disease of native coronary artery without angina pectoris; R06.02 Shortness of breath; Z79.01 Long term (current) use of anticoagulants; Z82.49 Family history of ischemic heart disease and other diseases of the circulatory system; Z86.73 Personal history of transient ischemic attack (TIA), and cerebral infarction without residual deficits; Z87.891 Personal history of nicotine dependence; Z90.49 Acquired absence of other specified parts of digestive tract; Z95.2 Presence of prosthetic heart valve; Z95.5 Presence of coronary angioplasty implant and graft
CPT/HCPCS: 93005; J3490; J0461

== ENCOUNTER 2024-04-04 05:47 | Inpatient (IN) | payer OTHER ==
[2024-04-02 14:29] LABS: BILIRUBIN,URINE NEGATIVE (Neg); CLARITY,URINE CLEAR (Clear); COLOR,URINE YELLOW (Yellow); GLUCOSE, URINE >=1000 mg/dl (Neg); KETONES,URINE NEGATIVE (Neg); LEUKOCYTE ESTERASE ,URINE NEGATIVE (Neg); NITRITES, URINE NEGATIVE (Neg); OCCULT BLOOD,URINE TRACE-INTACT (Neg); PH,URINE 5.5 (4.8-8.0); PROTEIN,URINE NEGATIVE (Neg); UROBILINOGEN,URINE 0.2 E.U/dL (0.2-1.0)
[2024-04-02 14:31] LABS: UA COLLECTION TYPE CLN CATCH MIDSTREAM
[2024-04-02 14:35] LABS: BACTERIA,URINE NONE SEEN /HPF (Neg); HYALINE CASTS 0-3 /LPF (NEGATIVE); SQUAMOUS EPITHELIAL CELL,UR NONE SEEN /LPF (FEW); WBC,URINE NONE SEEN /HPF (0-4)
[2024-04-02 14:49] LABS: BASOPHILS # (AUTO) 0.1 X10'3 (0-0.2); EOSINOPHILS # (AUTO) 0.2 X10'3 (0-0.9); EOSINOPHILS % (AUTO) 2.7 % (0-6); LYMPHOCYTES # (AUTO) 1.4 X10'3 (1.1-4.8); LYMPHOCYTES % (AUTO) 16.2 % (21-51); MEAN CORPUSCULAR HEMOGLOBIN 31.9 PG (27.0-31.0); MEAN CORPUSCULAR HGB CONC 33.5 g/dL (33.0-36.5); MEAN CORPUSCULAR VOLUME 95.2 FL (78-98); MEAN PLATELET VOLUME 7.7 FL (7.4-10.4); MONOCYTES # (AUTO) 0.8 X10'3 (0-0.9); MONOCYTES % (AUTO) 8.7 % (2-12); NEUTROPHILS # (AUTO) 6.4 X10'3 (1.8-7.7); NEUTROPHILS % (AUTO) 71.4 % (42-75); PRE OP HEMATOCRIT 48.4 % (42.0-52.0); PRE OP HEMOGLOBIN 16.2 g/dL (14.0-17.9); PRE OP PLATELET COUNT 286 X10'3 (140-440); PRE OP WHITE BLOOD COUNT 8.9 10'3 (4.8-10.8); RED BLOOD COUNT 5.08 X10'6 (4.70-6.10); RED CELL DISTRIBUTION WIDTH 16.4 % (11.5-14.5)
[2024-04-02 15:02] LABS: PRE OP PROTIME 10.9 SECONDS (9.0-12.0)
[2024-04-02 15:12] LABS: ALBUMIN 3.8 G/DL (3.4-5.0); ALBUMIN/GLOBULIN RATIO 0.8 (1.1-1.5); ALKALINE PHOSPHATASE 98 IU/L (46-116); BLOOD UREA NITROGEN 12 MG/DL (7-18); BUN/CREATININE RATIO 7.7 (10.0-20.0); CALCIUM 8.8 MG/DL (8.5-10.1); CHLORIDE 102 MMOL/L (99-107); CREATININE 1.56 MG/DL (0.60-1.10); PRE OP ALT 23 U/L (30-65); PRE OP ANION GAP 9 (8-16); PRE OP AST 23 U/L (10-37); PRE OP BILIRUB, TOTAL 0.9 MG/DL (0.0-1.0); PRE OP GLUCOSE 107 MG/DL (70-104); PRE OP POTASSIUM 3.6 MMOL/L (3.4-5.1); PRE OP SODIUM 138 MMOL/L (135-145); PRO BRAIN NATRIURETIC PEPTIDE 1078 PG/ML (0-125); TOTAL CARBON DIOXIDE 26.9 MMOL/L (24-32); TOTAL PROTEIN 8.4 G/DL (6.4-8.2); eGFR 44 ML/MIN
[~2024-04-04] VITALS: Ht 167.6 cm; Wt 102.2 kg
[2024-04-04] VITALS (31 sets, daily range): BP systolic 111–170; BP diastolic 71–107; PULSE 65–136; RESP 13–24; TEMP 97.5–97.9; O2SAT 94–100
[2024-04-04] MEDS: DOCUMENT DATE & TIME OF BETA-BLOCKER PO ONE (05:30)
[2024-04-04] MEDS: VANCOMYCIN 1,500MG inj. 1,500 MG in normal saline 500ml IV soln 300 ML IV ONE (05:30)
[2024-04-04] MEDS: ceFAZolin 2gm in dextrose, iso 50 ML IV ONE (05:30)
[~2024-04-04 05:47] MED LIST changes: -AMOX-580 PO; +CLOP75TA34 PO; +EMPA10TA PO; -FURO-149 PO; +FURO20TA4 PO; -LEVO25TA7 PO; +LISI10TA27 PO; -LISI5TAB22 PO; -METO-395 PO; +METO-411 PO; -PRED20TA PO; +SPIR25TA5 PO; -atropine 0.1mg/ml 10ml syringe ONE; -metoprolol tartrate 1mg/ml inj IV ONE; +ondansetron/PF 4mg/2ml inj IV PRN
[2024-04-04] MEDS: aspirin 325mg tablet PO ONE (06:42)
[2024-04-04] MEDS: famotidine 20mg tablet PO ONE (06:42)
[2024-04-04] MEDS ORDERED: protamine sulfate 10mg/ml inj. ONE (06:43)
[2024-04-04] MEDS: ringers solution, lacted 1,000 ML IV SCH ×2 (06:43→11:03)
[2024-04-04] MEDS ORDERED: ondansetron/PF 4mg/2ml inj IV PRN ×2 (07:55→10:10)
[2024-04-04] MEDS ORDERED: proCHLORperazine 10 MG/2 ml inj IV PRN ×2 (07:55→10:10)
[2024-04-04] MEDS ORDERED: morphine 4 MG/ML inj SYRINge IV PRN (07:55)
[2024-04-04] MEDS ORDERED: morphine 2 MG/ML inj. syringe IV PRN (07:55)
[2024-04-04] MEDS ORDERED: meperidine/PF 25mg/ml syringe IV PRN ×3 (07:55)
[2024-04-04] MEDS ORDERED: LIDOcaine 1% (10mg/ml) 2ml vial ONE (08:19)
[2024-04-04] MEDS ORDERED: iohexol 350MG/ML 100ml bottle IV ONE ×2 (08:24→09:33)
[2024-04-04] MEDS ORDERED: heparin 1,000 UNITS/NS 500ml 1,500 ML ONE (08:24)
[2024-04-04] MEDS ORDERED: sevoflurane 250ml liquid IH ONE (08:42)
[2024-04-04] MEDS ORDERED: fentaNYL/PF 50MCG/1 ML 2ML syringe ONE (08:45)
[2024-04-04] MEDS ORDERED: midazolam 1 mg/ML 2ml injection ONE (08:45)
[2024-04-04] MEDS ORDERED: propofol inj 20 ML IV ONE (08:57)
[2024-04-04] MEDS ORDERED: heparin 1,000unit/ml 10ml vial 10 ML ONE (08:57)
[2024-04-04] MEDS: protamine sulf. 10mg/ml inj. IV ONE (09:15)
[2024-04-04] MEDS ORDERED: heparin 1,000 UNITS/NS 500ml 500 ML ONE (09:21)
[2024-04-04] MEDS ORDERED: iohexol 350 MG/ML 50ML vial IV ONE (09:30)
[2024-04-04] MEDS ORDERED: potassium Cl 40MEQ/270ML bag 250 ML IV PRN (10:10)
[2024-04-04] MEDS ORDERED: potassium Cl 20 mEq SR tablet PO PRN (10:10)
[2024-04-04] MEDS ORDERED: magnesium sulf-water 4G/100mL 100 ML IV PRN (10:10)
[2024-04-04] MEDS ORDERED: potassium CL 10mEq/100ml bag 100 ML IV PRN (10:10)
[2024-04-04] MEDS ORDERED: ALPRAZolam 0.25mg tablet PO PRN (10:10)
[2024-04-04] MEDS ORDERED: labetalol 20mg/4ml (5mg/ml) syringe IV PRN (10:10)
[2024-04-04] MEDS: normal saline 1000ml 1,000 ML IV SCH (10:10)
[2024-04-04] MEDS ORDERED: potassium Cl 20mEq/100mL bag 100 ML IV PRN (10:10)
[2024-04-04] MEDS ORDERED: docusate sod 100mg capsule PO PRN (10:10)
[2024-04-04] MEDS ORDERED: acetaminophen 325mg tablet PO PRN (10:10)
[2024-04-04] MEDS ORDERED: pantoprazole 40mg Tablet.DR PO PRN (10:10)
[2024-04-04] MEDS ORDERED: potassium Cl 40MEQ/1/2NS 520ml 520 ML IV PRN (10:10)
[2024-04-04] MEDS ORDERED: diphenhydrAMINE 25mg capsule PO PRN (10:10)
[2024-04-04] MEDS ORDERED: magnesium sulf-water 2g/50mL 50 ML IV PRN (10:10)
[2024-04-04] MEDS: nitroPRUSSIDE (NIPRIDE) (200MCG/ML) 100ML Drip IV SCH (11:02)
[2024-04-04] MEDS: phenylephrine inj 50 MG in normal saline 250ml IV solN IV SCH (11:03)
[2024-04-04] MEDS: hydrALAZINE 20mg/ml inj. IV PRN (15:34)
[2024-04-04] MEDS: sod chloride 0.9% 10ml flush syringe IV SCH (16:03)
[2024-04-04] MEDS: ceFAZolin 1GM/D5W- ADD-VANTAGE 50 ML IV SCH (16:03)
[2024-04-04] MEDS: HYDROcodone/acetaminophen 5mg/325mg tablet PO PRN (16:25)
[2024-04-04] MEDS: metoprolol succinate 25mg (24-HOUR) SR. Tablet PO ONE (16:33)
[2024-04-04] MEDS: VANCOMYCIN 1GM 200ML H20 (PEG) 200 ML IV SCH (22:03)
[2024-04-05 02:00] VITALS: BP 136/79; PULSE 90; RESP 18; TEMP 97.7; O2SAT 97
[2024-04-05] MEDS: metoprolol succinate 25mg (24-HOUR) SR. Tablet PO SCH (07:15)
[2024-04-05] MEDS: lisinopril 10 MG tablet PO SCH (07:15)
[2024-04-05] MEDS: clopidogrel 75mg tablet PO SCH (07:16)
[2024-04-05] MEDS: atorvastatin 20mg tablet PO SCH (07:16)
[2024-04-05] MEDS: furosemide 20MG tablet PO SCH (07:16)
[2024-04-05] MEDS: spironolactone 25 MG tablet PO SCH (07:17)
[2024-04-05 08:00] VITALS: BP 120/88; PULSE 97; RESP 16; RESP 20; TEMP 97.3; O2SAT 95; O2SAT 97
[2024-04-05] MEDS ORDERED: clopidogrel 75mg tablet PO SCH (08:00)
[2024-04-05 08:24] LABS: BASOPHILS # (AUTO) 0.1 X10'3 (0-0.2); BASOPHILS % (AUTO) 0.8 % (0-1); EOSINOPHILS # (AUTO) 0.1 X10'3 (0-0.9); EOSINOPHILS % (AUTO) 1.3 % (0-6); HEMATOCRIT 41.2 % (42.0-52.0); HEMOGLOBIN 14.4 g/dl (14.0-17.9); LYMPHOCYTES # (AUTO) 1.3 X10'3 (1.1-4.8); LYMPHOCYTES % (AUTO) 12.7 % (21-51); MEAN CORPUSCULAR HEMOGLOBIN 33.1 PG (27.0-31.0); MEAN CORPUSCULAR VOLUME 94.5 FL (78-98); MEAN PLATELET VOLUME 8.2 FL (7.4-10.4); MONOCYTES # (AUTO) 1.2 X10'3 (0-0.9); MONOCYTES % (AUTO) 11.7 % (2-12); NEUTROPHILS # (AUTO) 7.3 X10'3 (1.8-7.7); NEUTROPHILS % (AUTO) 73.5 % (42-75); PLATELET COUNT 219 X10'3 (140-440); RED BLOOD COUNT 4.36 X10'6 (4.70-6.10); WHITE BLOOD COUNT 9.9 X10'3 (4.5-11.0)
[2024-04-05 08:56] LABS: ALANINE AMINOTRANSFERASE 15 U/L (12-78); ALBUMIN 3.2 G/DL (3.4-5.0); ALBUMIN/GLOBULIN RATIO 0.8 (1.1-1.5); ALKALINE PHOSPHATASE 83 IU/L (46-116); ANION GAP 9 (8-16); ASPARTATE AMINO TRANSFERASE 23 U/L (10-37); BLOOD UREA NITROGEN 15 MG/DL (7-18); BUN/CREATININE RATIO 9.6 (10.0-20.0); CALCIUM 8.4 MG/DL (8.5-10.1); CHLORIDE 103 MMOL/L (99-107); CREATININE 1.56 MG/DL (0.60-1.10); GLUCOSE 100 MG/DL (70-104); MAGNESIUM 1.9 MG/DL (1.5-2.4); POTASSIUM 3.9 MMOL/L (3.5-5.1); PRO BRAIN NATRIURETIC PEPTIDE 1244 PG/ML (0-125); SODIUM 135 MMOL/L (135-145); TOTAL CARBON DIOXIDE 22.8 MMOL/L (24-32); TOTAL PROTEIN 7.4 G/DL (6.4-8.2); eCRCL 41 ML/MIN; eGFR 44 ML/MIN
[2024-04-05] MEDS ORDERED: spironolactone 25 MG tablet PO SCH (13:20)
[2024-04-05 15:00] VITALS: BP 141/80; PULSE 53; TEMP 98.3; O2SAT 99
== END 2024-04-05 16:46 | disposition home or self-care (01) | DRG 266 ==
LOC: PAS IN 05:47 → EDSTATUS 08:30 → PCU 3S 15:18
PROVIDERS: ADMIT Internal Medicine Cardiovascular Disease; ATTEND Internal Medicine Cardiovascular Disease
PROC: B41D1ZZ Fluoroscopy of Aorta and Bilateral Lower Extremity Arteries using Low Osmolar Contrast (ICD-10-PCS; 2024-04-04)
PROC: X2A5312 Cerebral Embolic Filtration, Dual Filter in Innominate Artery and Left Common Carotid Artery, Percutaneous Approach, New Technology Group 2 (ICD-10-PCS; 2024-04-04)
PROC: 02RF38Z Replacement of Aortic Valve with Zooplastic Tissue, Percutaneous Approach (ICD-10-PCS; principal; 2024-04-04 08:42)
DX: I35.0 Nonrheumatic aortic (valve) stenosis (principal); Z00.6 Encounter for examination for normal comparison and control in clinical research program; I50.23 Acute on chronic systolic (congestive) heart failure; I48.0 Paroxysmal atrial fibrillation; I25.10 Atherosclerotic heart disease of native coronary artery without angina pectoris
CPT/HCPCS: 33361; 36415; 71045; 71046; 80053; 81001; 82948; 83036; 83735; 83880; 85025; 85347; 85610; 85730; 86885; 86900; 86901; 86920; 87081; 93005; 93308; A4618; A6258; A6449; C1760; C1769; C1884; C1894; G0378; J0360; J0690; J1644; J2003; J2250; J2371; J2704; J2720; J3010; J3370; J3372; J3490; J7040; J7050; J7120; Q9967